=== PATIENT | male | born 1985 | race Caucasian/White ===

== ENCOUNTER 2022-04-04 07:36 | Emergency (ER) | payer OTHER ==
[~2022-04-04] VITALS: Ht 175.3 cm; Wt 68.0 kg
[2022-04-04] MEDS ORDERED: SODIUM CHLORIDE 0.9% 1,000 ML IV ONE ×2 (07:45→09:30)
[2022-04-04 08:31] LABS: HEMATOCRIT. 42.3 % (42.0-52.0); HEMOGLOBIN. 13.4 g/dL (14.0-18.0); MEAN CORPUSCULAR HEMOGLOBIN 23.5 pg (28.0-32.0); MEAN CORPUSCULAR VOLUME 74.2 fL (80.0-94.0); MEAN PLATELET VOLUME 6.9 fl (7.4-10.4); PLATELET 291 x1000/uL (130-400); RED CELL DISTRIBUTION WIDTH 22.5 % (11.6-14.6)
[2022-04-04 08:38] LABS: CHLORIDE 103 mEq/L (98-107)
[2022-04-04 08:46] LABS: ETHANOL BLOOD < 10 mg/dL
[2022-04-04 09:09] LABS: PLATELET ESTIMATE NORMAL
[2022-04-04] MEDS ORDERED: POTASSIUM CHLORIDE 20MEQ TABLET SR PO SCH (09:30)
[2022-04-04] MEDS ORDERED: POTASSIUM CHLORIDE INJ 30 MEQ in DEXT 5%/0.9% NACL 1,000 ML IV ONE (09:30)
[2022-04-04 11:03] LABS: CLARITY URINE CLEAR (CLEAR); COLOR URINE YELLOW (YELLOW); KETONES URINE 4+ (NEGATIVE); LEUKOCYTE ESTERASE URINE NEGATIVE (NEGATIVE); NITRITE URINE NEGATIVE (NEGATIVE); OCCULT BLOOD URINE TRACE (NEGATIVE); PROTEIN URINE TRACE (NEGATIVE); SPECIFIC GRAVITY URINE 1.014 (1.005-1.030); UROBILINOGEN URINE 0.2 E.U./dL (0.2-1.0)
[2022-04-04 11:13] LABS: *AMPHETAMINES SCREEN URINE NEGATIVE (NEGATIVE); *BARBITURATES SCREEN URINE NEGATIVE (NEGATIVE); *BENZODIAZEPINES SCREEN URINE NEGATIVE (NEGATIVE); *COCAINE SCREEN URINE NEGATIVE (NEGATIVE); CANNABINOID URINE SCREEN NEGATIVE (NEGATIVE); METHADONE URINE SCREEN NEGATIVE (NEGATIVE); OPIATES URINE SCREEN NEGATIVE (NEGATIVE); PHENCYCLIDINE URINE SCREEN NEGATIVE (NEGATIVE)
[2022-04-04] MEDS ORDERED: MESA1.2T2 MT (13:11)
[2022-04-04 13:50] VITALS: BP 116/82
== END 2022-04-04 13:52 | disposition home or self-care (01) ==
LOC: ER 08:55
DX: R53.1 Weakness (principal); E87.6 Hypokalemia; R10.33 Periumbilical pain; Z86.16 Personal history of COVID-19; Z87.19 Personal history of other diseases of the digestive system
CPT/HCPCS: 36415; 74176; 80053; 80305; 80320; 81003; 83690; 85025; 96365; 96366; 99285; J3480; J7030; J7042; G0480

== ENCOUNTER 2022-04-12 08:20 | Emergency (ER) | payer OTHER ==
[~2022-04-12] VITALS: Ht 165.1 cm; Wt 57.0 kg
[~2022-04-12 08:20] MED LIST: MESA1.2T2 MT
[2022-04-12 08:23] VITALS: BP 118/84
[2022-04-12 09:01] LABS: HEMATOCRIT. 48.7 % (42.0-52.0); HEMOGLOBIN. 15.1 g/dL (14.0-18.0); MEAN CORPUSCULAR HEMOGLOBIN 23.2 pg (28.0-32.0); MEAN CORPUSCULAR VOLUME 75.1 fL (80.0-94.0); MEAN PLATELET VOLUME 6.8 fl (7.4-10.4); PLATELET 433 x1000/uL (130-400); RED BLOOD CELL COUNT 6.49 mill/uL (4.7-6.1); RED CELL DISTRIBUTION WIDTH 21.8 % (11.6-14.6)
[2022-04-12 09:08] LABS: CHLORIDE 100 mEq/L (98-107)
[2022-04-12 09:24] LABS: T4 FREE 1.27 ng/dL (0.76-1.46)
[2022-04-12 10:08] LABS: PLATELET ESTIMATE SLIGHTLY INCREASED
[2022-04-12] MEDS ORDERED: POTASSIUM CHLORIDE 20MEQ TABLET SR PO ONE (10:15)
[2022-04-12] MEDS ORDERED: MAGNESIUM OXIDE 400MG TABLET PO SCH (10:15)
[2022-04-12 10:38] LABS: CLARITY URINE CLEAR (CLEAR); COLOR URINE YELLOW (YELLOW); KETONES URINE 4+ (NEGATIVE); LEUKOCYTE ESTERASE URINE NEGATIVE (NEGATIVE); NITRITE URINE NEGATIVE (NEGATIVE); OCCULT BLOOD URINE 1+ (NEGATIVE); PH URINE 5.5 (4.5-8.0); PROTEIN URINE 3+ (NEGATIVE); SPECIFIC GRAVITY URINE 1.035 (1.005-1.030); UROBILINOGEN URINE 0.2 E.U./dL (0.2-1.0)
[2022-04-12] MEDS ORDERED: SODIUM CHLORIDE 0.9% 1,000 ML IV ONE (10:45)
[2022-04-12 10:53] LABS: *AMPHETAMINES SCREEN URINE NEGATIVE (NEGATIVE); *BARBITURATES SCREEN URINE NEGATIVE (NEGATIVE); *BENZODIAZEPINES SCREEN URINE NEGATIVE (NEGATIVE); *COCAINE SCREEN URINE NEGATIVE (NEGATIVE); CANNABINOID URINE SCREEN NEGATIVE (NEGATIVE); METHADONE URINE SCREEN NEGATIVE (NEGATIVE); OPIATES URINE SCREEN NEGATIVE (NEGATIVE); PHENCYCLIDINE URINE SCREEN NEGATIVE (NEGATIVE)
[2022-04-12] MEDS ORDERED: POTA-189 MT (11:49)
[2022-04-12] MEDS ORDERED: METF-873 MT (11:49)
== END 2022-04-12 13:40 | disposition home or self-care (01) ==
LOC: ER 08:20
DX: R53.1 Weakness (principal); E87.6 Hypokalemia; E11.65 Type 2 diabetes mellitus with hyperglycemia; Z87.11 Personal history of peptic ulcer disease
CPT/HCPCS: 36415; 80053; 80305; 81003; 83735; 84439; 84443; 85025; 93005; 96360; 99283; J7030

== ENCOUNTER 2022-04-15 06:38 | Inpatient (IN) | payer OTHER ==
[~2022-04-15] VITALS: Ht 177.8 cm; Wt 55.4 kg
[~2022-04-15 06:38] MED LIST changes: +METF-873 MT; +POTA-189 MT
[2022-04-15] MEDS ORDERED: SODIUM CHLORIDE 0.9% 1,000 ML IV ONE ×3 (07:45→13:00)
[2022-04-15 09:03] LABS: HEMOGLOBIN. 13.7 g/dL (14.0-18.0); MEAN CORPUSCULAR HEMOGLOBIN 23.7 pg (28.0-32.0); MEAN CORPUSCULAR VOLUME 76.3 fL (80.0-94.0); PLATELET 490 x1000/uL (130-400); RED BLOOD CELL COUNT 5.77 mill/uL (4.7-6.1); RED CELL DISTRIBUTION WIDTH 21.4 % (11.6-14.6)
[2022-04-15 09:11] LABS: CHLORIDE 99 mEq/L (98-107)
[2022-04-15 09:14] LABS: BG BASE EXCESS -24.8 mmol/L (-2.0-2.0); BG CARBOXYHEMOGLOBIN 0.3 % (0.5-1.5); BG DEOXYHEMOGLOBIN 3.1 % (0.0-5.0); BG FRACTION INSPIRED OXYGEN 21; BG METHEMOGLOBIN 0.3 % (0.0-1.5); BG OXYGEN SATURATION 96.9 % (92.0-98.5); BG OXYHEMOGLOBIN 96.3 % (94.0-97.0); BG PCO2 15.4 mmHg (35.0-45.0); BG PH 7.037 (7.350-7.450); BG PO2 150.8 mmHg (75.0-100.0); BG SAMPLE SITE RIGHT BRACHIAL; BG TOTAL HEMOGLOBIN 13.7 g/dL (12.0-18.0); BG VENT MODE ROOM AIR
[2022-04-15 09:19] LABS: BETA HYDROXYBUTYRATE 9.6 mMol/L (0.0-0.3)
[2022-04-15 09:28] LABS: INR 1.1; PROTHROMBIN TIME 11.4 sec (9.6-11.0)
[2022-04-15] MEDS ORDERED: INSULIN REGULAR (DRIP) 100 UNITS in SODIUM CHLORIDE 0.9% 99 ML IV ONE ×2 (09:30→19:00)
[2022-04-15 09:42] LABS: CLARITY URINE CLEAR (CLEAR); COLOR URINE YELLOW (YELLOW); KETONES URINE 4+ (NEGATIVE); LEUKOCYTE ESTERASE URINE NEGATIVE (NEGATIVE); NITRITE URINE NEGATIVE (NEGATIVE); OCCULT BLOOD URINE 1+ (NEGATIVE); PH URINE 5.5 (4.5-8.0); PROTEIN URINE 2+ (NEGATIVE); SPECIFIC GRAVITY URINE 1.026 (1.005-1.030); UROBILINOGEN URINE 0.2 E.U./dL (0.2-1.0)
[2022-04-15] MEDS ORDERED: POTASSIUM CHLORIDE INJ 40 MEQ in DEXT 5% WATER 500 ML IV ONE (09:45)
[2022-04-15] MEDS ORDERED: MORPHINE SULFATE 4 MG/ML CPJ (NOT FOR IM USE) IV ONE (09:45)
[2022-04-15 11:21] LABS: NUCLEATED RED BLOOD CELLS 1 /100 WBC
[2022-04-15 11:22] LABS: PLATELET ESTIMATE INCREASED
[2022-04-15 12:22] LABS: HEMATOCRIT. 42.2 % (42.0-52.0); HEMOGLOBIN. 12.3 g/dL (14.0-18.0); MEAN CORPUSCULAR HEMOGLOBIN 23.3 pg (28.0-32.0); MEAN CORPUSCULAR VOLUME 79.5 fL (80.0-94.0); PLATELET 400 x1000/uL (130-400); RED CELL DISTRIBUTION WIDTH 21.2 % (11.6-14.6)
[2022-04-15 12:23] LABS: CHLORIDE 103 mEq/L (98-107)
[2022-04-15 12:30] LABS: BETA HYDROXYBUTYRATE 9.1 mMol/L (0.0-0.3); PHOSPHORUS 3.2 mg/dL (2.5-4.9)
[2022-04-15] MEDS ORDERED: MAGNESIUM 1 G PREMIX 100 ML IV ONE (13:00)
[2022-04-15 14:12] LABS: CHLORIDE 104 mEq/L (98-107)
[2022-04-15] MEDS ORDERED: VANCOMYCIN 1G PREMIX 200 ML IV ONE (14:15)
[2022-04-15] MEDS ORDERED: PIPERACILLIN/TAZ 3.375G PREMIX 50 ML IV ONE (14:15)
[2022-04-15 14:20] LABS: PHOSPHORUS 2.9 mg/dL (2.5-4.9)
[2022-04-15 14:29] LABS: PLATELET ESTIMATE INCREASED
[2022-04-15] MEDS ORDERED: VANCOMYCIN 1GM PMX (XELLIA) 200 ML IV NR (15:15)
[2022-04-15] MEDS ORDERED: DIPHENHYDRAMINE 50MG/ML VIAL IV PRN (19:00)
[2022-04-15] MEDS ORDERED: ONDANSETRON HCL 4MG/2ML INJ IV PRN (19:00)
[2022-04-15] MEDS ORDERED: POTASSIUM CHLORIDE INJ 40 MEQ in DEXT 5% WATER 250 ML IV ONE (19:00)
[2022-04-15] MEDS ORDERED: ACETAMINOPHEN 325MG TABLET PO PRN ×2 (19:00)
[2022-04-15] MEDS: SODIUM CHLORIDE 0.9% 1,000 ML IV SCH (19:06)
[2022-04-15] MEDS ORDERED: INSULIN REGULAR 100U/100ML PMX 100 ML IV ONE (19:15)
[2022-04-15] MEDS ORDERED: KCL 20MEQ/100ML X 2 FOR TOTAL KCL 40MEQ/200ML IV SCH ×2 (19:15)
[2022-04-15] MEDS ORDERED: SODIUM CHLORIDE 0.9% 1,000 ML IV SCH (19:15)
[2022-04-15] MEDS ORDERED: INSULIN REGULAR 100U/100ML PMX 100 ML IV SCH (19:15)
[2022-04-15 19:25] LABS: CHLORIDE 104 mEq/L (98-107)
[2022-04-15] MEDS: FAMOTIDINE 20MG/2ML VIAL IV SCH (21:00)
[2022-04-16] VITALS (24 sets, daily range): BP systolic 98–125; BP diastolic 55–84
[2022-04-16] MEDS: DEXT 5%/0.45% NACL 1000ML 1,000 ML IV SCH ×4 (04:00→23:47)
[2022-04-16 06:10] LABS: CHLORIDE 107 mEq/L (98-107)
[2022-04-16 06:13] LABS: HEMATOCRIT. 38.6 % (42.0-52.0); HEMOGLOBIN. 12.3 g/dL (14.0-18.0); MEAN CORPUSCULAR HEMOGLOBIN 23.8 pg (28.0-32.0); MEAN CORPUSCULAR VOLUME 74.6 fL (80.0-94.0); MEAN PLATELET VOLUME 6.6 fl (7.4-10.4); PLATELET 364 x1000/uL (130-400); RED BLOOD CELL COUNT 5.17 mill/uL (4.7-6.1); RED CELL DISTRIBUTION WIDTH 21.2 % (11.6-14.6)
[2022-04-16 06:20] LABS: PHOSPHORUS 1.1 mg/dL (2.5-4.9)
[2022-04-16] MEDS: KCL 20MEQ/100ML X 2 FOR TOTAL KCL 40MEQ/200ML IV SCH ×4 (09:14→23:43)
[2022-04-16] MEDS: FAMOTIDINE 20MG/2ML VIAL IV SCH ×2 (09:15→21:37)
[2022-04-16] MEDS: SODIUM CHLORIDE 0.9% 1,000 ML IV SCH ×2 (09:16)
[2022-04-16] MEDS ORDERED: POTASSIUM PHOS,M-BASIC-D-BASIC 30 MMOL in SODIUM CHLORIDE 0.9% 500 ML IV NR (11:00)
[2022-04-16 11:34] LABS: PLATELET ESTIMATE NORMAL
[2022-04-16] MEDS ORDERED: INSULIN REGULAR (DRIP) 100 UNITS in SODIUM CHLORIDE 0.9% 99 ML IV ONE (13:15)
[2022-04-16] MEDS: BLOOD SUGAR DIAGNOSTIC STRIP TEST SCH ×11 (13:26→23:37)
[2022-04-16] MEDS ORDERED: DEXTROSE 50% WATER 50ML SYRINGE IV PRN (13:30)
[2022-04-16] MEDS ORDERED: INSULIN REGULAR 100U/100ML PMX 100 ML IV SCH (13:30)
[2022-04-16] MEDS ORDERED: POTASSIUM CHLORIDE INJ 40 MEQ in DEXT 5% WATER 250 ML IV ONE (15:00)
[2022-04-17] VITALS (48 sets, daily range): BP systolic 103–125; BP diastolic 55–80
[2022-04-17] MEDS: BLOOD SUGAR DIAGNOSTIC STRIP TEST SCH ×22 (00:06→23:00)
[2022-04-17] MEDS: KCL 20MEQ/100ML X 2 FOR TOTAL KCL 40MEQ/200ML IV SCH (02:06)
[2022-04-17] MEDS: DEXT 5%/0.45% NACL 1000ML 1,000 ML IV SCH ×4 (02:07→23:37)
[2022-04-17 06:14] LABS: HEMATOCRIT. 33.7 % (42.0-52.0); HEMOGLOBIN. 11.1 g/dL (14.0-18.0); MEAN CORPUSCULAR HEMOGLOBIN 23.5 pg (28.0-32.0); MEAN CORPUSCULAR VOLUME 71.2 fL (80.0-94.0); MEAN PLATELET VOLUME 7.2 fl (7.4-10.4); PLATELET 296 x1000/uL (130-400); RED BLOOD CELL COUNT 4.74 mill/uL (4.7-6.1); RED CELL DISTRIBUTION WIDTH 21.3 % (11.6-14.6)
[2022-04-17 06:36] LABS: CHLORIDE 111 mEq/L (98-107)
[2022-04-17] MEDS: FAMOTIDINE 20MG/2ML VIAL IV SCH ×2 (08:44→21:17)
[2022-04-17 09:04] LABS: PHOSPHORUS 0.6 mg/dL (2.5-4.9)
[2022-04-17] MEDS ORDERED: DEXTROSE 50% WATER 50ML SYRINGE IV PRN ×2 (10:15)
[2022-04-17] MEDS: KCL 20MEQ/100ML PREMIX 100 ML IV SCH ×3 (10:31→23:36)
[2022-04-17] MEDS ORDERED: INSULIN REGULAR 100U/100ML PMX 100 ML IV SCH (11:00)
[2022-04-17] MEDS ORDERED: MAGNESIUM 2 G PREMIX 50 ML IV SCH (11:00)
[2022-04-17] MEDS ORDERED: POTASSIUM CHLORIDE 20MEQ/PACKET PO SCH (11:00)
[2022-04-17] MEDS ORDERED: BLOOD SUGAR DIAGNOSTIC STRIP TEST SCH (11:00)
[2022-04-17] MEDS ORDERED: POTASSIUM PHOS,M-BASIC-D-BASIC 30 MMOL in SODIUM CHLORIDE 0.9% 500 ML IV SCH (12:00)
[2022-04-17] MEDS: POTASSIUM CHLORIDE 20MEQ TABLET SR PO NR ×2 (13:45→14:01)
[2022-04-17 20:23] LABS: PLATELET ESTIMATE NORMAL
[2022-04-18] VITALS (43 sets, daily range): BP systolic 65–139; BP diastolic 45–85
[2022-04-18] MEDS: BLOOD SUGAR DIAGNOSTIC STRIP TEST SCH ×12 (01:00→21:00)
[2022-04-18] MEDS: KCL 20MEQ/100ML PREMIX 100 ML IV SCH ×4 (02:01→22:01)
[2022-04-18 05:54] LABS: CHLORIDE 109 mEq/L (98-107)
[2022-04-18] MEDS: DEXT 5%/0.45% NACL 1000ML 1,000 ML IV SCH (06:51)
[2022-04-18] MEDS ORDERED: POTASSIUM CHLORIDE 20MEQ TABLET SR PO NR ×2 (08:15→14:00)
[2022-04-18] MEDS ORDERED: DEXTROSE 50% WATER 50ML SYRINGE IV PRN (08:15)
[2022-04-18] MEDS ORDERED: SODIUM CHLORIDE 0.9% 1,000 ML IV SCH (08:15)
[2022-04-18] MEDS: INSULIN LISPRO 100 UNITS/ML SUBCUT SCH ×4 (08:30→22:01)
[2022-04-18] MEDS ORDERED: DEXT 5%/0.45% NACL KCL 40MEQ/L 1,000 ML IV SCH (08:30)
[2022-04-18] MEDS ORDERED: DEXT 5% WATER + KCL 40MEQ/L 1,000 ML IV SCH (08:30)
[2022-04-18] MEDS: FAMOTIDINE 20MG/2ML VIAL IV SCH ×2 (08:51→20:14)
[2022-04-18] MEDS: SODIUM CHLORIDE 0.9% 1,000 ML IV SCH (09:41)
[2022-04-18] MEDS ORDERED: INSULIN GLARGINE 100 UNITS/ML SUBCUT SCH (10:00)
[2022-04-18] MEDS ORDERED: POTASSIUM PHOS,M-BASIC-D-BASIC 30 MMOL in DEXT 5% WATER 500 ML IV ONE (10:30)
[2022-04-18] MEDS: POTASSIUM CHLORIDE 20MEQ TABLET SR PO SCH ×4 (17:11→22:01)
[2022-04-19] VITALS (28 sets, daily range): BP systolic 78–126; BP diastolic 54–90
[2022-04-19] MEDS: POTASSIUM CHLORIDE 20MEQ TABLET SR PO SCH ×4 (01:08→16:49)
[2022-04-19] MEDS: KCL 20MEQ/100ML PREMIX 100 ML IV SCH (01:08)
[2022-04-19 06:11] LABS: CHLORIDE 102 mEq/L (98-107)
[2022-04-19 06:17] LABS: PHOSPHORUS 2.9 mg/dL (2.5-4.9)
[2022-04-19] MEDS: BLOOD SUGAR DIAGNOSTIC STRIP TEST SCH ×4 (06:20→20:35)
[2022-04-19] MEDS: SODIUM CHLORIDE 0.9% 1,000 ML IV SCH (06:20)
[2022-04-19] MEDS: INSULIN LISPRO 100 UNITS/ML SUBCUT SCH ×4 (06:20→20:35)
[2022-04-19] MEDS: FAMOTIDINE 20MG/2ML VIAL IV SCH ×2 (09:10→21:25)
[2022-04-19] MEDS: INSULIN GLARGINE 100 UNITS/ML SUBCUT SCH (10:27)
[2022-04-19] MEDS: METFORMIN HCL 500MG TABLET PO SCH ×2 (10:27→16:48)
[2022-04-19] MEDS ORDERED: MAGNESIUM 2 G PREMIX 50 ML IV SCH (12:00)
[2022-04-20] VITALS (24 sets, daily range): BP systolic 84–120; BP diastolic 53–82
[2022-04-20 05:07] LABS: CHLORIDE 99 mEq/L (98-107)
[2022-04-20 05:18] LABS: PHOSPHORUS 2.3 mg/dL (2.5-4.9)
[2022-04-20] MEDS: INSULIN LISPRO 100 UNITS/ML SUBCUT SCH ×3 (06:20→18:05)
[2022-04-20] MEDS: BLOOD SUGAR DIAGNOSTIC STRIP TEST SCH ×3 (06:20→16:30)
[2022-04-20] MEDS: METFORMIN HCL 500MG TABLET PO SCH ×2 (06:38→17:00)
[2022-04-20] MEDS: FAMOTIDINE 20MG/2ML VIAL IV SCH (08:59)
[2022-04-20] MEDS: INSULIN GLARGINE 100 UNITS/ML SUBCUT SCH (09:53)
[2022-04-20] MEDS ORDERED: POTASSIUM PHOS,M-BASIC-D-BASIC 15 MMOL in DEXT 5% WATER 245 ML IV NR (11:30)
[2022-04-20] MEDS: POTASSIUM CHLORIDE 20MEQ TABLET SR PO SCH ×4 (11:40→18:04)
[2022-04-20] MEDS ORDERED: INSU100I24 SQ (17:12)
[2022-04-20] MEDS ORDERED: INSU100I41 (17:13)
[2022-04-20] MEDS ORDERED: INSU100I45 (17:14)
[2022-04-20] MEDS ORDERED: BLOO-1686 MC (17:15)
== END 2022-04-20 18:30 | disposition home or self-care (01) | DRG 638 ==
LOC: ER 06:38 → EDBEDREQ 10:23 → EDBEDREQSVC 10:23 → MICUSO 23:37 → MICUNO 04-16 11:00
PROVIDERS: ADMIT Internal Medicine; ATTEND Internal Medicine
DX: E11.10 Type 2 diabetes mellitus with ketoacidosis without coma (principal); R65.10 Systemic inflammatory response syndrome (SIRS) of non-infectious origin without acute organ dysfunction; E83.39 Other disorders of phosphorus metabolism; Z20.822 Contact with and (suspected) exposure to COVID-19; E87.6 Hypokalemia; E83.42 Hypomagnesemia; Z83.3 Family history of diabetes mellitus
CPT/HCPCS: 36415; 36600; 71045; 80048; 80053; 81003; 82010; 82375; 82805; 82962; 83605; 83735; 84100; 84145; 84484; 85025; 87426; 93005; 99291; C9803; J1815; J2270; J2405; J2543; J3370; J3475; J3480; J3490; J7030; J7040; J7050; J7060